=== PATIENT | male | born 1955 | race African-American/Black ===

== ENCOUNTER 2018-05-12 16:01 | Emergency (ER) | payer MEDICAID ==
[~2018-05-12] VITALS: Ht 177.8 cm; Wt 78.0 kg
[2018-05-12] MEDS ORDERED: IBUPROFEN 600MG TABLET PO ONE (20:45)
[2018-05-12 21:46] VITALS: BP 128/76
== END 2018-05-12 21:51 | disposition home or self-care (01) ==
LOC: ER 16:15
DX: S39.012A Strain of muscle, fascia and tendon of lower back, initial encounter (principal); S16.1XXA Strain of muscle, fascia and tendon at neck level, initial encounter; M25.571 Pain in right ankle and joints of right foot; F17.200 Nicotine dependence, unspecified, uncomplicated; V49.49XA Driver injured in collision with other motor vehicles in traffic accident, initial encounter; Y93.89 Activity, other specified; Y92.89 Other specified places as the place of occurrence of the external cause; Y99.8 Other external cause status; Z98.890 Other specified postprocedural states
CPT/HCPCS: 73610; 99283